=== PATIENT | male | born 1990 | race Caucasian/White ===

== ENCOUNTER 2016-10-16 05:29 | Emergency (ER) | payer SELFPAY ==
[~2016-10-16] VITALS: Ht 175.3 cm; Wt 81.8 kg
[2016-10-16 05:35] VITALS: BP 125/75
== END 2016-10-16 06:26 | disposition left against medical advice (07) ==
LOC: EMS 05:31
DX: S01.511A Laceration without foreign body of lip, initial encounter (principal); Y00.XXXA Assault by blunt object, initial encounter; Y93.89 Activity, other specified; Y92.89 Other specified places as the place of occurrence of the external cause; Y99.8 Other external cause status; Z53.21 Procedure and treatment not carried out due to patient leaving prior to being seen by health care provider